=== PATIENT | female | born 1935 | race American Indian/Alaskan Native ===

== ENCOUNTER 2018-03-29 19:55 | Inpatient (IN) | payer MEDICARE, BC ==
[~2018-03-29] VITALS: Ht 152.4 cm; Wt 59.0 kg
[2018-03-29 21:00] VITALS: BP 148/93
[2018-03-29] MEDS ORDERED: HYDRALAZINE HCL 25MG TABLET PO PRN (21:00)
[2018-03-29] MEDS ORDERED: DOCUSATE SODIUM 100MG CAPSULE PO PRN (21:00)
[2018-03-29] MEDS ORDERED: METHOCARBAMOL 750MG TABLET PO PRN (21:00)
[2018-03-29] MEDS ORDERED: MAGNESIUM HYDROXIDE 400MG/5ML 30ML UDC PO PRN (21:00)
[2018-03-29] MEDS ORDERED: NON FORMULARY PATIENT HOME MED EA XX SCH ×5 (21:00→22:00)
[2018-03-29] MEDS ORDERED: DEXTROSE 50% WATER 50ML SYRINGE IV PRN (21:15)
[2018-03-29] MEDS ORDERED: HYDROCODONE/ACETAMINOPHEN 5/325MG TABLET PO PRN (21:27)
[2018-03-29] MEDS ORDERED: TRAMADOL 50MG TABLET PO PRN (21:30)
[2018-03-29 22:00] VITALS: BP 148/93
[2018-03-29] MEDS: BLOOD SUGAR DIAGNOSTIC STRIP TEST SCH (22:00)
[2018-03-29] MEDS ORDERED: KDUR10 PO ×2 (22:19)
[2018-03-29] MEDS ORDERED: ASPI-1079 PO (22:19)
[2018-03-29] MEDS ORDERED: GLIP10TA10 PO (22:19)
[2018-03-29] MEDS ORDERED: LOSA50TA20 PO (22:19)
[2018-03-29] MEDS ORDERED: MULT1TAB67 PO (22:19)
[2018-03-29] MEDS ORDERED: PRAV40TA58 PO (22:19)
[2018-03-29] MEDS ORDERED: FISH PO (22:19)
[2018-03-29] MEDS ORDERED: OMEP20CA10 PO (22:19)
[2018-03-29] MEDS ORDERED: RANI300T4 PO (22:19)
[2018-03-29] MEDS ORDERED: METF500T6 PO (22:19)
[2018-03-29] MEDS ORDERED: DOCU-138 PO (22:19)
[2018-03-29] MEDS ORDERED: CHOL200074 PO (22:19)
[2018-03-29] MEDS ORDERED: DYZ GT (22:19)
[2018-03-29] MEDS ORDERED: FERR325T6 PO (22:19)
[2018-03-29] MEDS ORDERED: TRAZ-212 PO (22:19)
[2018-03-29] MEDS ORDERED: ASCO-339 PO (22:19)
[2018-03-29] MEDS ORDERED: XALAO EACHEYE (22:19)
[2018-03-29] MEDS: SENNOSIDES 8.6MG TABLET PO SCH (22:51)
[2018-03-29] MEDS: LATANOPROST 0.005% OPHTH DROPS 2.5ML BOTHEYE SCH (22:51)
[2018-03-29] MEDS: CEFTRIAXONE 2 G in DEXTROSE 5% WATER 50 ML IV SCH (22:52)
[2018-03-29] MEDS: INSULIN GLARGINE UD 100 UNITS/ML SYR SUBCUT SCH (23:28)
[2018-03-29] MEDS: INSULIN LISPRO 100 UNITS/ML SUBCUT SCH (23:28)
[2018-03-29] MEDS ORDERED: THROAT LOZENGES-BENZOCAINE/MENTH/CETYLPYRD CL LOZENGES MM PRN (23:30)
[2018-03-30] MEDS ORDERED: XALAO EACHEYE (02:44)
[2018-03-30] MEDS ORDERED: FISH PO (02:44)
[2018-03-30] MEDS: BLOOD SUGAR DIAGNOSTIC STRIP TEST SCH ×4 (06:12→20:48)
[2018-03-30] MEDS: PANTOPRAZOLE 40MG DR TABLET PO SCH (06:12)
[2018-03-30 06:55] LABS: CHLORIDE 94 mEq/L (98-107)
[2018-03-30] MEDS: INSULIN LISPRO 100 UNITS/ML SUBCUT SCH ×4 (06:56→21:40)
[2018-03-30 07:01] VITALS: BP 141/66
[2018-03-30 07:41] LABS: HEMATOCRIT. 30.9 % (36.0-48.0); MEAN CORPUSCULAR HEMOGLOBIN 31.9 pg (28.0-32.0); MEAN CORPUSCULAR VOLUME 89.8 fL (81.0-99.0); MEAN PLATELET VOLUME 6.1 fl (7.4-10.4); PLATELET 352 x1000/uL (130-400); RED BLOOD CELL COUNT 3.44 mill/uL (4.2-5.4); RED CELL DISTRIBUTION WIDTH 12.2 % (11.6-14.6)
[2018-03-30] MEDS: POLYETHYLENE GLYCOL 3350 (17GM) 1 DOSE PACK PO SCH (08:59)
[2018-03-30] MEDS: ASCORBIC ACID 500 MG TABLET PO SCH (08:59)
[2018-03-30] MEDS: MULTIVITAMINS,THER W-MINERALS TABLET PO SCH (08:59)
[2018-03-30] MEDS: LOSARTAN POTASSIUM 50 MG TABLET PO SCH (09:00)
[2018-03-30] MEDS: FISH OIL/OMEGA-3 FATTY ACIDS 1000MG CAPSULE PO SCH ×2 (09:00→16:48)
[2018-03-30] MEDS ORDERED: FERROUS SULFATE 325MG TABLET PO SCH (09:00)
[2018-03-30] MEDS: SENNOSIDES 8.6MG TABLET PO SCH ×2 (09:00→20:49)
[2018-03-30] MEDS: TRIAMTERENE/HYDROCHLOROTHIAZIDE 37.5/25MG CAPSULE PO SCH (09:00)
[2018-03-30] MEDS: DOCUSATE SODIUM 100MG CAPSULE PO SCH ×2 (09:00→16:48)
[2018-03-30] MEDS: FAMOTIDINE 20MG TABLET PO SCH (09:00)
[2018-03-30] MEDS: CEFTRIAXONE 2 G in DEXTROSE 5% WATER 50 ML IV SCH ×2 (10:26→20:48)
[2018-03-30] MEDS: LINAGLIPTIN 5MG TABLET PO SCH (12:27)
[2018-03-30] MEDS: METFORMIN HCL 500MG TABLET PO SCH (16:48)
[2018-03-30 20:00] VITALS: BP 119/60
[2018-03-30] MEDS: LATANOPROST 0.005% OPHTH DROPS 2.5ML BOTHEYE SCH (20:47)
[2018-03-30] MEDS: TRAZODONE HCL 50MG TABLET PO SCH (20:48)
[2018-03-30] MEDS: ATORVASTATIN CALCIUM 10MG TABLET PO SCH (20:48)
[2018-03-30] MEDS: INSULIN GLARGINE UD 100 UNITS/ML SYR SUBCUT SCH (21:40)
[2018-03-30 22:47] LABS: PLATELET ESTIMATE NORMAL
[2018-03-31] MEDS: PANTOPRAZOLE 40MG DR TABLET PO SCH (06:13)
[2018-03-31] MEDS: BLOOD SUGAR DIAGNOSTIC STRIP TEST SCH ×4 (06:13→21:30)
[2018-03-31] MEDS: INSULIN LISPRO 100 UNITS/ML SUBCUT SCH ×4 (06:32→21:50)
[2018-03-31 07:48] LABS: CHLORIDE 94 mEq/L (98-107)
[2018-03-31 08:00] VITALS: BP 137/61
[2018-03-31 08:26] LABS: HEMATOCRIT. 32.6 % (36.0-48.0); HEMOGLOBIN. 11.5 g/dL (12.0-16.0); MEAN CORPUSCULAR HEMOGLOBIN 32.1 pg (28.0-32.0); MEAN CORPUSCULAR VOLUME 90.8 fL (81.0-99.0); MEAN PLATELET VOLUME 6.1 fl (7.4-10.4); PLATELET 358 x1000/uL (130-400); RED BLOOD CELL COUNT 3.59 mill/uL (4.2-5.4); RED CELL DISTRIBUTION WIDTH 12.5 % (11.6-14.6)
[2018-03-31] MEDS: MULTIVITAMINS,THER W-MINERALS TABLET PO SCH (08:31)
[2018-03-31] MEDS: FISH OIL/OMEGA-3 FATTY ACIDS 1000MG CAPSULE PO SCH ×2 (08:31→17:42)
[2018-03-31] MEDS: LOSARTAN POTASSIUM 50 MG TABLET PO SCH (08:31)
[2018-03-31] MEDS: LINAGLIPTIN 5MG TABLET PO SCH (08:31)
[2018-03-31] MEDS: POLYETHYLENE GLYCOL 3350 (17GM) 1 DOSE PACK PO SCH (08:31)
[2018-03-31] MEDS: CEFTRIAXONE 2 G in DEXTROSE 5% WATER 50 ML IV SCH ×2 (08:31→20:48)
[2018-03-31] MEDS: METFORMIN HCL 500MG TABLET PO SCH ×2 (08:32→17:42)
[2018-03-31] MEDS: TRIAMTERENE/HYDROCHLOROTHIAZIDE 37.5/25MG CAPSULE PO SCH (08:32)
[2018-03-31] MEDS: ACETAMINOPHEN 325MG TABLET PO PRN (08:32)
[2018-03-31] MEDS: DOCUSATE SODIUM 100MG CAPSULE PO SCH ×2 (08:32→17:42)
[2018-03-31] MEDS: LACTOBACILLUS GG CAPSULE PO SCH (08:32)
[2018-03-31] MEDS: FAMOTIDINE 20MG TABLET PO SCH (08:32)
[2018-03-31] MEDS: ASCORBIC ACID 500 MG TABLET PO SCH (08:33)
[2018-03-31] MEDS: SENNOSIDES 8.6MG TABLET PO SCH ×2 (09:20→21:50)
[2018-03-31 10:37] LABS: CLARITY URINE CLEAR (CLEAR); COLOR URINE YELLOW (YELLOW); KETONES URINE NEGATIVE (NEGATIVE); LEUKOCYTE ESTERASE URINE NEGATIVE (NEGATIVE); NITRITE URINE NEGATIVE (NEGATIVE); OCCULT BLOOD URINE NEGATIVE (NEGATIVE); PH URINE 6.5 (4.5-8.0); PROTEIN URINE NEGATIVE (NEGATIVE); SPECIFIC GRAVITY URINE 1.015 (1.005-1.030); UROBILINOGEN URINE 0.2 E.U./dL (0.2-1.0)
[2018-03-31 13:04] LABS: PLATELET ESTIMATE NORMAL
[2018-03-31 20:00] VITALS: BP 132/72
[2018-03-31] MEDS: LATANOPROST 0.005% OPHTH DROPS 2.5ML BOTHEYE SCH (20:47)
[2018-03-31] MEDS: ATORVASTATIN CALCIUM 10MG TABLET PO SCH (20:47)
[2018-03-31] MEDS: TRAZODONE HCL 50MG TABLET PO SCH (20:48)
[2018-03-31] MEDS: INSULIN GLARGINE UD 100 UNITS/ML SYR SUBCUT SCH (22:19)
[2018-04-01] MEDS: BLOOD SUGAR DIAGNOSTIC STRIP TEST SCH ×4 (06:16→21:32)
[2018-04-01] MEDS: INSULIN LISPRO 100 UNITS/ML SUBCUT SCH ×4 (06:49→22:29)
[2018-04-01 07:26] LABS: CHLORIDE 95 mEq/L (98-107)
[2018-04-01 07:45] LABS: PHOSPHORUS 3.2 mg/dL (2.5-4.9); TOTAL IRON BINDING CAPACITY 270 ug/dL (250-450)
[2018-04-01 08:00] VITALS: BP 136/58
[2018-04-01 08:13] LABS: HEMATOCRIT. 31.8 % (36.0-48.0); HEMOGLOBIN. 11.3 g/dL (12.0-16.0); MEAN CORPUSCULAR HEMOGLOBIN 31.9 pg (28.0-32.0); MEAN CORPUSCULAR VOLUME 89.6 fL (81.0-99.0); MEAN PLATELET VOLUME 6.1 fl (7.4-10.4); PLATELET 389 x1000/uL (130-400); RED BLOOD CELL COUNT 3.55 mill/uL (4.2-5.4); RED CELL DISTRIBUTION WIDTH 12.3 % (11.6-14.6)
[2018-04-01] MEDS ORDERED: FAMOTIDINE 20MG TABLET PO SCH (09:00)
[2018-04-01] MEDS: CEFTRIAXONE 2 G in DEXTROSE 5% WATER 50 ML IV SCH ×2 (09:26→22:22)
[2018-04-01] MEDS: MULTIVITAMINS,THER W-MINERALS TABLET PO SCH (09:27)
[2018-04-01] MEDS: METFORMIN HCL 500MG TABLET PO SCH ×2 (09:27→17:46)
[2018-04-01] MEDS: FISH OIL/OMEGA-3 FATTY ACIDS 1000MG CAPSULE PO SCH ×2 (09:27→17:46)
[2018-04-01] MEDS: TRIAMTERENE/HYDROCHLOROTHIAZIDE 37.5/25MG CAPSULE PO SCH (09:27)
[2018-04-01] MEDS: LINAGLIPTIN 5MG TABLET PO SCH (09:27)
[2018-04-01] MEDS: LOSARTAN POTASSIUM 50 MG TABLET PO SCH (09:27)
[2018-04-01] MEDS: LACTOBACILLUS GG CAPSULE PO SCH (09:28)
[2018-04-01] MEDS: DOCUSATE SODIUM 100MG CAPSULE PO SCH ×2 (09:28→17:46)
[2018-04-01] MEDS: ASCORBIC ACID 500 MG TABLET PO SCH (09:28)
[2018-04-01] MEDS: POLYETHYLENE GLYCOL 3350 (17GM) 1 DOSE PACK PO SCH (09:28)
[2018-04-01] MEDS: FAMOTIDINE 20MG TABLET PO SCH (09:28)
[2018-04-01] MEDS: SENNOSIDES 8.6MG TABLET PO SCH ×2 (09:31→22:23)
[2018-04-01] MEDS ORDERED: ASCORBIC ACID 500 MG TABLET PO SCH (10:00)
[2018-04-01 10:49] LABS: FERRITIN 200 ng/mL (10-291)
[2018-04-01] MEDS: OXYBUTYNIN CHLORIDE 5MG TABLET PO SCH ×2 (11:07→22:23)
[2018-04-01] MEDS: ZINC SULFATE 220 MG ( 50 ) CAPSULE PO SCH (11:07)
[2018-04-01] MEDS: FERROUS SULFATE 325MG TABLET PO SCH ×2 (12:35→17:46)
[2018-04-01 13:06] LABS: PLATELET ESTIMATE NORMAL
[2018-04-01 14:24] LABS: VITAMIN B12 SERUM 884 pg/mL (211-911)
[2018-04-01 14:30] LABS: FOLIC ACID (FOLATE) SERUM >20 ng/mL ng/mL (>5.38)
[2018-04-01 20:00] VITALS: BP 140/64
[2018-04-01] MEDS: LATANOPROST 0.005% OPHTH DROPS 2.5ML BOTHEYE SCH (22:23)
[2018-04-01] MEDS: ATORVASTATIN CALCIUM 10MG TABLET PO SCH (22:23)
[2018-04-01] MEDS: TRAZODONE HCL 50MG TABLET PO SCH (22:23)
[2018-04-01] MEDS: INSULIN GLARGINE UD 100 UNITS/ML SYR SUBCUT SCH (22:30)
[2018-04-02] MEDS: INSULIN LISPRO 100 UNITS/ML SUBCUT SCH ×4 (06:27→21:30)
[2018-04-02] MEDS: BLOOD SUGAR DIAGNOSTIC STRIP TEST SCH ×4 (06:27→21:17)
[2018-04-02 07:09] LABS: CHLORIDE 96 mEq/L (98-107)
[2018-04-02 07:44] LABS: HEMATOCRIT. 33.5 % (36.0-48.0); HEMOGLOBIN. 11.9 g/dL (12.0-16.0); MEAN PLATELET VOLUME 5.9 fl (7.4-10.4); PLATELET 402 x1000/uL (130-400); RED BLOOD CELL COUNT 3.72 mill/uL (4.2-5.4); RED CELL DISTRIBUTION WIDTH 12.6 % (11.6-14.6)
[2018-04-02 08:00] VITALS: BP 129/67
[2018-04-02] MEDS: CEFTRIAXONE 2 G in DEXTROSE 5% WATER 50 ML IV SCH ×2 (08:58→21:05)
[2018-04-02 08:59] LABS: PLATELET ESTIMATE SLIGHTLY INCREASED
[2018-04-02] MEDS: OXYBUTYNIN CHLORIDE 5MG TABLET PO SCH ×2 (08:59→21:05)
[2018-04-02] MEDS: LACTOBACILLUS GG CAPSULE PO SCH (08:59)
[2018-04-02] MEDS: DOCUSATE SODIUM 100MG CAPSULE PO SCH ×2 (08:59→19:00)
[2018-04-02] MEDS: POLYETHYLENE GLYCOL 3350 (17GM) 1 DOSE PACK PO SCH (08:59)
[2018-04-02] MEDS: LINAGLIPTIN 5MG TABLET PO SCH (09:00)
[2018-04-02] MEDS: TRIAMTERENE/HYDROCHLOROTHIAZIDE 37.5/25MG CAPSULE PO SCH (09:00)
[2018-04-02] MEDS: LOSARTAN POTASSIUM 50 MG TABLET PO SCH (09:00)
[2018-04-02] MEDS: FERROUS SULFATE 325MG TABLET PO SCH ×3 (09:00→19:01)
[2018-04-02] MEDS: SENNOSIDES 8.6MG TABLET PO SCH ×2 (09:00→21:05)
[2018-04-02] MEDS: FAMOTIDINE 20MG TABLET PO SCH (09:00)
[2018-04-02] MEDS: ZINC SULFATE 220 MG ( 50 ) CAPSULE PO SCH (09:00)
[2018-04-02] MEDS: MULTIVITAMINS,THER W-MINERALS TABLET PO SCH (09:00)
[2018-04-02] MEDS: METFORMIN HCL 500MG TABLET PO SCH ×2 (09:01→19:01)
[2018-04-02] MEDS: ACETAMINOPHEN 325MG TABLET PO PRN (09:46)
[2018-04-02] MEDS: ASCORBIC ACID 500 MG TABLET PO SCH (10:35)
[2018-04-02] MEDS: FISH OIL/OMEGA-3 FATTY ACIDS 1000MG CAPSULE PO SCH ×2 (10:55→19:01)
[2018-04-02 20:00] VITALS: BP 133/59
[2018-04-02] MEDS: ATORVASTATIN CALCIUM 10MG TABLET PO SCH (21:05)
[2018-04-02] MEDS: LATANOPROST 0.005% OPHTH DROPS 2.5ML BOTHEYE SCH (21:05)
[2018-04-02] MEDS: TRAZODONE HCL 50MG TABLET PO SCH (21:31)
[2018-04-02] MEDS: INSULIN GLARGINE UD 100 UNITS/ML SYR SUBCUT SCH (21:31)
[2018-04-03] MEDS: BLOOD SUGAR DIAGNOSTIC STRIP TEST SCH ×4 (06:26→21:42)
[2018-04-03] MEDS: INSULIN LISPRO 100 UNITS/ML SUBCUT SCH ×4 (06:48→21:42)
[2018-04-03 07:55] VITALS: BP 127/55
[2018-04-03 08:00] VITALS: BP 127/55
[2018-04-03] MEDS: POLYETHYLENE GLYCOL 3350 (17GM) 1 DOSE PACK PO SCH (09:08)
[2018-04-03] MEDS: ZINC SULFATE 220 MG ( 50 ) CAPSULE PO SCH (09:09)
[2018-04-03] MEDS: FISH OIL/OMEGA-3 FATTY ACIDS 1000MG CAPSULE PO SCH ×2 (09:09→18:00)
[2018-04-03] MEDS: TRIAMTERENE/HYDROCHLOROTHIAZIDE 37.5/25MG CAPSULE PO SCH (09:09)
[2018-04-03] MEDS: ASCORBIC ACID 500 MG TABLET PO SCH (09:10)
[2018-04-03] MEDS: DOCUSATE SODIUM 100MG CAPSULE PO SCH ×2 (09:10→18:00)
[2018-04-03] MEDS: METFORMIN HCL 500MG TABLET PO SCH ×2 (09:10→18:01)
[2018-04-03] MEDS: LACTOBACILLUS GG CAPSULE PO SCH (09:10)
[2018-04-03] MEDS: ACETAMINOPHEN 325MG TABLET PO PRN (09:10)
[2018-04-03] MEDS: FERROUS SULFATE 325MG TABLET PO SCH ×3 (09:11→18:01)
[2018-04-03] MEDS: FAMOTIDINE 20MG TABLET PO SCH (09:11)
[2018-04-03] MEDS: SENNOSIDES 8.6MG TABLET PO SCH ×2 (09:11→21:27)
[2018-04-03] MEDS: OXYBUTYNIN CHLORIDE 5MG TABLET PO SCH ×2 (09:11→21:26)
[2018-04-03] MEDS: LOSARTAN POTASSIUM 50 MG TABLET PO SCH (09:11)
[2018-04-03] MEDS: MULTIVITAMINS,THER W-MINERALS TABLET PO SCH (09:11)
[2018-04-03] MEDS: LINAGLIPTIN 5MG TABLET PO SCH (09:20)
[2018-04-03] MEDS: CEFTRIAXONE 2 G in DEXTROSE 5% WATER 50 ML IV SCH ×2 (09:24→21:29)
[2018-04-03 20:00] VITALS: BP 119/57
[2018-04-03] MEDS: ATORVASTATIN CALCIUM 10MG TABLET PO SCH (21:26)
[2018-04-03] MEDS: TRAZODONE HCL 50MG TABLET PO SCH (21:27)
[2018-04-03] MEDS ORDERED: HYDROCODONE/ACETAMINOPHEN 5/325MG TABLET PO PRN (21:27)
[2018-04-03] MEDS: LATANOPROST 0.005% OPHTH DROPS 2.5ML BOTHEYE SCH (21:28)
[2018-04-03] MEDS ORDERED: TRAMADOL 50MG TABLET PO PRN (21:30)
[2018-04-03] MEDS: INSULIN GLARGINE UD 100 UNITS/ML SYR SUBCUT SCH (21:42)
[2018-04-04] MEDS: BLOOD SUGAR DIAGNOSTIC STRIP TEST SCH ×4 (06:20→21:20)
[2018-04-04] MEDS: INSULIN LISPRO 100 UNITS/ML SUBCUT SCH ×4 (06:27→21:20)
[2018-04-04 07:26] LABS: HEMATOCRIT. 32.1 % (36.0-48.0); HEMOGLOBIN. 11.4 g/dL (12.0-16.0); MEAN CORPUSCULAR HEMOGLOBIN 32.2 pg (28.0-32.0); MEAN CORPUSCULAR VOLUME 90.7 fL (81.0-99.0); PLATELET 381 x1000/uL (130-400); RED BLOOD CELL COUNT 3.54 mill/uL (4.2-5.4); RED CELL DISTRIBUTION WIDTH 12.1 % (11.6-14.6)
[2018-04-04 07:48] LABS: CHLORIDE 98 mEq/L (98-107)
[2018-04-04 08:00] VITALS: BP 124/62
[2018-04-04] MEDS: ASCORBIC ACID 500 MG TABLET PO SCH (09:11)
[2018-04-04] MEDS: METFORMIN HCL 500MG TABLET PO SCH ×2 (09:11→16:45)
[2018-04-04] MEDS: FAMOTIDINE 20MG TABLET PO SCH (09:11)
[2018-04-04] MEDS: MULTIVITAMINS,THER W-MINERALS TABLET PO SCH (09:11)
[2018-04-04] MEDS: FISH OIL/OMEGA-3 FATTY ACIDS 1000MG CAPSULE PO SCH ×2 (09:11→16:45)
[2018-04-04] MEDS: TRIAMTERENE/HYDROCHLOROTHIAZIDE 37.5/25MG CAPSULE PO SCH (09:11)
[2018-04-04] MEDS: DOCUSATE SODIUM 100MG CAPSULE PO SCH ×2 (09:11→16:45)
[2018-04-04] MEDS: LOSARTAN POTASSIUM 50 MG TABLET PO SCH (09:11)
[2018-04-04] MEDS: FERROUS SULFATE 325MG TABLET PO SCH ×3 (09:11→16:45)
[2018-04-04] MEDS: LACTOBACILLUS GG CAPSULE PO SCH (09:11)
[2018-04-04] MEDS: ZINC SULFATE 220 MG ( 50 ) CAPSULE PO SCH (09:11)
[2018-04-04] MEDS: LINAGLIPTIN 5MG TABLET PO SCH (09:11)
[2018-04-04] MEDS: POLYETHYLENE GLYCOL 3350 (17GM) 1 DOSE PACK PO SCH (09:12)
[2018-04-04] MEDS: OXYBUTYNIN CHLORIDE 5MG TABLET PO SCH ×2 (09:12→21:19)
[2018-04-04] MEDS: ACETAMINOPHEN 325MG TABLET PO PRN (09:12)
[2018-04-04] MEDS: CEFTRIAXONE 2 G in DEXTROSE 5% WATER 50 ML IV SCH ×2 (09:28→21:19)
[2018-04-04] MEDS: SENNOSIDES 8.6MG TABLET PO SCH ×2 (11:34→21:19)
[2018-04-04 12:00] VITALS: BP 124/62
[2018-04-04] MEDS ORDERED: LACTULOSE 20G/30ML UDC PO NR (15:00)
[2018-04-04 16:53] LABS: PLATELET ESTIMATE NORMAL
[2018-04-04 20:00] VITALS: BP 128/58
[2018-04-04] MEDS: LATANOPROST 0.005% OPHTH DROPS 2.5ML BOTHEYE SCH (21:19)
[2018-04-04] MEDS: ATORVASTATIN CALCIUM 10MG TABLET PO SCH (21:19)
[2018-04-04] MEDS: TRAZODONE HCL 50MG TABLET PO SCH (21:20)
[2018-04-04] MEDS: INSULIN GLARGINE UD 100 UNITS/ML SYR SUBCUT SCH (21:21)
[2018-04-05] MEDS: BLOOD SUGAR DIAGNOSTIC STRIP TEST SCH ×4 (06:30→21:11)
[2018-04-05] MEDS: INSULIN LISPRO 100 UNITS/ML SUBCUT SCH ×4 (07:41→21:00)
[2018-04-05 08:00] VITALS: BP 148/67
[2018-04-05] MEDS: CEFTRIAXONE 2 G in DEXTROSE 5% WATER 50 ML IV SCH ×2 (08:47→20:41)
[2018-04-05] MEDS: POLYETHYLENE GLYCOL 3350 (17GM) 1 DOSE PACK PO SCH (08:48)
[2018-04-05] MEDS: OXYBUTYNIN CHLORIDE 5MG TABLET PO SCH ×2 (08:48→20:41)
[2018-04-05] MEDS: MULTIVITAMINS,THER W-MINERALS TABLET PO SCH (08:48)
[2018-04-05] MEDS: METFORMIN HCL 500MG TABLET PO SCH ×2 (08:48→16:39)
[2018-04-05] MEDS: TRIAMTERENE/HYDROCHLOROTHIAZIDE 37.5/25MG CAPSULE PO SCH (08:48)
[2018-04-05] MEDS: LOSARTAN POTASSIUM 50 MG TABLET PO SCH (08:49)
[2018-04-05] MEDS: LINAGLIPTIN 5MG TABLET PO SCH (08:49)
[2018-04-05] MEDS: DOCUSATE SODIUM 100MG CAPSULE PO SCH ×2 (08:49→16:39)
[2018-04-05] MEDS: LACTOBACILLUS GG CAPSULE PO SCH (08:49)
[2018-04-05] MEDS: ASCORBIC ACID 500 MG TABLET PO SCH (08:49)
[2018-04-05] MEDS: FERROUS SULFATE 325MG TABLET PO SCH ×3 (08:49→16:39)
[2018-04-05] MEDS: FAMOTIDINE 20MG TABLET PO SCH (08:49)
[2018-04-05] MEDS: ZINC SULFATE 220 MG ( 50 ) CAPSULE PO SCH (08:50)
[2018-04-05] MEDS: FISH OIL/OMEGA-3 FATTY ACIDS 1000MG CAPSULE PO SCH ×2 (09:02→16:39)
[2018-04-05] MEDS: SENNOSIDES 8.6MG TABLET PO SCH ×2 (09:04→21:11)
[2018-04-05 20:00] VITALS: BP 125/70
[2018-04-05] MEDS: LATANOPROST 0.005% OPHTH DROPS 2.5ML BOTHEYE SCH (20:41)
[2018-04-05] MEDS: ATORVASTATIN CALCIUM 10MG TABLET PO SCH (20:41)
[2018-04-05] MEDS: TRAZODONE HCL 50MG TABLET PO SCH (21:11)
[2018-04-05] MEDS: INSULIN GLARGINE UD 100 UNITS/ML SYR SUBCUT SCH (21:26)
[2018-04-06] MEDS: BLOOD SUGAR DIAGNOSTIC STRIP TEST SCH ×4 (06:10→21:05)
[2018-04-06] MEDS: INSULIN LISPRO 100 UNITS/ML SUBCUT SCH ×4 (06:48→21:12)
[2018-04-06 07:50] VITALS: BP 142/68
[2018-04-06] MEDS: ACETAMINOPHEN 325MG TABLET PO PRN (07:56)
[2018-04-06] MEDS: FERROUS SULFATE 325MG TABLET PO SCH ×3 (08:34→17:22)
[2018-04-06] MEDS: ZINC SULFATE 220 MG ( 50 ) CAPSULE PO SCH (08:34)
[2018-04-06] MEDS: LOSARTAN POTASSIUM 50 MG TABLET PO SCH (08:34)
[2018-04-06] MEDS: ASCORBIC ACID 500 MG TABLET PO SCH (08:34)
[2018-04-06] MEDS: MULTIVITAMINS,THER W-MINERALS TABLET PO SCH (08:34)
[2018-04-06] MEDS: TRIAMTERENE/HYDROCHLOROTHIAZIDE 37.5/25MG CAPSULE PO SCH (08:34)
[2018-04-06] MEDS: FAMOTIDINE 20MG TABLET PO SCH (08:34)
[2018-04-06] MEDS: LINAGLIPTIN 5MG TABLET PO SCH (08:34)
[2018-04-06] MEDS: METFORMIN HCL 500MG TABLET PO SCH ×2 (08:34→17:22)
[2018-04-06] MEDS: FISH OIL/OMEGA-3 FATTY ACIDS 1000MG CAPSULE PO SCH ×2 (08:35→17:22)
[2018-04-06] MEDS: OXYBUTYNIN CHLORIDE 5MG TABLET PO SCH ×2 (08:35→21:04)
[2018-04-06] MEDS: POLYETHYLENE GLYCOL 3350 (17GM) 1 DOSE PACK PO SCH (08:35)
[2018-04-06] MEDS: LACTOBACILLUS GG CAPSULE PO SCH (08:35)
[2018-04-06] MEDS: DOCUSATE SODIUM 100MG CAPSULE PO SCH ×2 (08:35→17:22)
[2018-04-06] MEDS: SENNOSIDES 8.6MG TABLET PO SCH ×2 (11:27→21:05)
[2018-04-06 15:06] LABS: 25-HYDROXY VITAMIN D3 58 ng/mL (.)
[2018-04-06 20:00] VITALS: BP 117/56
[2018-04-06] MEDS: TRAZODONE HCL 50MG TABLET PO SCH (21:04)
[2018-04-06] MEDS: LATANOPROST 0.005% OPHTH DROPS 2.5ML BOTHEYE SCH (21:04)
[2018-04-06] MEDS: ATORVASTATIN CALCIUM 10MG TABLET PO SCH (21:04)
[2018-04-06] MEDS: INSULIN GLARGINE UD 100 UNITS/ML SYR SUBCUT SCH (21:12)
[2018-04-07] MEDS: INSULIN LISPRO 100 UNITS/ML SUBCUT SCH (05:59)
[2018-04-07] MEDS: BLOOD SUGAR DIAGNOSTIC STRIP TEST SCH ×2 (05:59→11:15)
[2018-04-07 08:00] VITALS: BP 154/71
[2018-04-07] MEDS: FISH OIL/OMEGA-3 FATTY ACIDS 1000MG CAPSULE PO SCH (09:30)
[2018-04-07] MEDS: ZINC SULFATE 220 MG ( 50 ) CAPSULE PO SCH (09:30)
[2018-04-07] MEDS: OXYBUTYNIN CHLORIDE 5MG TABLET PO SCH (09:31)
[2018-04-07] MEDS: LOSARTAN POTASSIUM 50 MG TABLET PO SCH (09:31)
[2018-04-07] MEDS: POLYETHYLENE GLYCOL 3350 (17GM) 1 DOSE PACK PO SCH (09:31)
[2018-04-07] MEDS: TRIAMTERENE/HYDROCHLOROTHIAZIDE 37.5/25MG CAPSULE PO SCH (09:31)
[2018-04-07] MEDS: METFORMIN HCL 500MG TABLET PO SCH (09:31)
[2018-04-07] MEDS: LACTOBACILLUS GG CAPSULE PO SCH (09:31)
[2018-04-07] MEDS: DOCUSATE SODIUM 100MG CAPSULE PO SCH (09:31)
[2018-04-07] MEDS: FAMOTIDINE 20MG TABLET PO SCH (09:31)
[2018-04-07] MEDS: MULTIVITAMINS,THER W-MINERALS TABLET PO SCH (09:31)
[2018-04-07] MEDS: FERROUS SULFATE 325MG TABLET PO SCH ×2 (09:31→13:17)
[2018-04-07] MEDS: LINAGLIPTIN 5MG TABLET PO SCH (09:31)
[2018-04-07] MEDS: SENNOSIDES 8.6MG TABLET PO SCH (09:34)
[2018-04-07] MEDS: ASCORBIC ACID 500 MG TABLET PO SCH (11:45)
[2018-04-07 12:34] VITALS: BP 154/71
== END 2018-04-07 14:35 | disposition home health service (06) | DRG 564 ==
PROVIDERS: ADMIT Physical Medicine & Rehabilitation Spinal Cord Injury Medicine; ATTEND Family Medicine Adult Medicine
DX: D49.2 Neoplasm of unspecified behavior of bone, soft tissue, and skin (principal); G93.40 Encephalopathy, unspecified; A41.59 Other Gram-negative sepsis; G82.20 Paraplegia, unspecified; F05 Delirium due to known physiological condition; R53.81 Other malaise; R26.9 Unspecified abnormalities of gait and mobility; R32 Unspecified urinary incontinence; R35.0 Frequency of micturition; L89.90 Pressure ulcer of unspecified site, unspecified stage; H40.9 Unspecified glaucoma; E78.5 Hyperlipidemia, unspecified; D50.9 Iron deficiency anemia, unspecified; E11.65 Type 2 diabetes mellitus with hyperglycemia; I10 Essential (primary) hypertension; N31.9 Neuromuscular dysfunction of bladder, unspecified; M54.5 Low back pain; M79.609 Pain in unspecified limb; K22.70 Barrett's esophagus without dysplasia; D36.10 Benign neoplasm of peripheral nerves and autonomic nervous system, unspecified; R50.82 Postprocedural fever; K21.9 Gastro-esophageal reflux disease without esophagitis; Z85.3 Personal history of malignant neoplasm of breast; Z92.21 Personal history of antineoplastic chemotherapy; Z90.10 Acquired absence of unspecified breast and nipple; Z85.038 Personal history of other malignant neoplasm of large intestine; Z98.1 Arthrodesis status; Z90.49 Acquired absence of other specified parts of digestive tract
CPT/HCPCS: 36415; 80048; 80053; 81003; 82306; 82607; 82728; 82746; 82962; 83036; 83540; 83550; 83735; 84100; 84134; 84443; 84630; 85025; 87086; 92523; 93970; 97110; 97112; 97116; 97162; 97166; 97530; 97535; G0515; J0696; J1815; J7040; J7050; J7060

== ENCOUNTER 2019-02-16 15:20 | Inpatient (IN) | payer MEDICARE, BC ==
[~2019-02-16] VITALS: Ht 152.4 cm; Wt 49.9 kg
[2019-02-16] MEDS ORDERED: MAGNESIUM HYDROXIDE 400MG/5ML 30ML UDC PO PRN (17:30)
[2019-02-16] MEDS ORDERED: LACTULOSE 20G/30ML UDC PO PRN (17:30)
[2019-02-16] MEDS ORDERED: DEXTROSE 50% WATER 50ML SYRINGE IV PRN (17:30)
[2019-02-16] MEDS ORDERED: ALBUTEROL (0.083%) 2.5MG/3ML NEB HHN PRN (17:30)
[2019-02-16] MEDS ORDERED: ACETAMINOPHEN 325MG TABLET PO PRN (17:30)
[2019-02-16] MEDS ORDERED: BISACODYL 10MG SUPP PR PRN (17:30)
[2019-02-16] MEDS ORDERED: MINERAL OIL ENEMA 133ML PR PRN (17:30)
[2019-02-16] MEDS ORDERED: MAGNESIUM/ALUMINUM HYDROXIDE/SIMETHICONE 30ML UDC PO PRN (17:30)
[2019-02-16] MEDS ORDERED: RANI300T4 PO (17:50)
[2019-02-16] MEDS ORDERED: SITA50TA3 PO (17:50)
[2019-02-16] MEDS ORDERED: MULT-1062 PO (17:50)
[2019-02-16] MEDS ORDERED: FISH GT (17:50)
[2019-02-16] MEDS ORDERED: CHOL200077 PO (17:50)
[2019-02-16] MEDS ORDERED: ASCO125T PO (17:50)
[2019-02-16] MEDS ORDERED: CALC-30 PO (17:50)
[2019-02-16] MEDS ORDERED: PRAV40TA58 PO (17:50)
[2019-02-16] MEDS ORDERED: LATA2.5D2 EACHEYE (17:50)
[2019-02-16] MEDS ORDERED: GLIP5TAB12 PO (17:50)
[2019-02-16] MEDS ORDERED: DOCU-138 PO (17:50)
[2019-02-16] MEDS ORDERED: LOSA50TA41 PO (17:50)
[2019-02-16] MEDS ORDERED: FERR220S12 PO (17:50)
[2019-02-16] MEDS ORDERED: OMEP20CA5 PO (17:50)
[2019-02-16] MEDS ORDERED: ASPI-864 PO (17:50)
[2019-02-16] MEDS ORDERED: METF-815 PO (17:50)
[2019-02-16 17:55] VITALS: BP 140/61
[2019-02-16 20:00] VITALS: BP 149/62
[2019-02-16] MEDS: BLOOD SUGAR DIAGNOSTIC STRIP TEST SCH (20:56)
[2019-02-16] MEDS: LATANOPROST 0.005% OPHTH DROPS 2.5ML BOTHEYE SCH (21:11)
[2019-02-16] MEDS: INSULIN LISPRO 100 UNITS/ML SUBCUT SCH (21:27)
[2019-02-16] MEDS ORDERED: IOHEXOL-300 100 ML BOTTLE ONE (21:47)
[2019-02-17 05:37] LABS: BASOPHILS % 0.7 % (0.0-2.0); EOSINOPHILS % 2.3 % (0.0-5.0); HEMATOCRIT. 30.7 % (36.0-48.0); HEMOGLOBIN. 10.8 g/dL (12.0-16.0); LYMPHOCYTES % 31.3 % (20.0-50.0); MEAN CORPUSCULAR HEMOGLOBIN 31.8 pg (28.0-32.0); MEAN CORPUSCULAR VOLUME 90.3 fL (81.0-99.0); MEAN PLATELET VOLUME 6.1 fl (7.4-10.4); MONOCYTES % 10.3 % (2.0-8.0); NEUTROPHILS % 55.4 % (40.0-76.0); PLATELET 330 x1000/uL (130-400); RED CELL DISTRIBUTION WIDTH 12.5 % (11.6-14.6)
[2019-02-17 05:43] LABS: CHLORIDE 107 mEq/L (98-107)
[2019-02-17] MEDS: BLOOD SUGAR DIAGNOSTIC STRIP TEST SCH ×4 (05:56→21:30)
[2019-02-17] MEDS: INSULIN LISPRO 100 UNITS/ML SUBCUT SCH ×4 (05:57→21:30)
[2019-02-17] MEDS: PANTOPRAZOLE 40MG DR TABLET PO SCH (06:00)
[2019-02-17 07:55] VITALS: BP 145/62
[2019-02-17] MEDS: FAMOTIDINE 20MG TABLET PO SCH (08:32)
[2019-02-17] MEDS: DOCUSATE SODIUM 100MG CAPSULE PO SCH ×2 (08:32→16:32)
[2019-02-17] MEDS: ENOXAPARIN 30MG/0.3ML SYR SUBCUT SCH (08:34)
[2019-02-17] MEDS: POLYETHYLENE GLYCOL 3350 (17GM) 1 DOSE PACK PO SCH (08:56)
[2019-02-17 20:00] VITALS: BP 138/60
[2019-02-17] MEDS: LATANOPROST 0.005% OPHTH DROPS 2.5ML BOTHEYE SCH (21:30)
[2019-02-18] MEDS: BLOOD SUGAR DIAGNOSTIC STRIP TEST SCH ×4 (06:10→21:18)
[2019-02-18] MEDS: PANTOPRAZOLE 40MG DR TABLET PO SCH (06:11)
[2019-02-18 07:18] LABS: BASOPHILS % 0.7 % (0.0-2.0); EOSINOPHILS % 1.9 % (0.0-5.0); HEMATOCRIT. 31.8 % (36.0-48.0); HEMOGLOBIN. 11.3 g/dL (12.0-16.0); LYMPHOCYTES % 30.5 % (20.0-50.0); MEAN CORPUSCULAR HEMOGLOBIN 32.1 pg (28.0-32.0); MEAN CORPUSCULAR VOLUME 90.3 fL (81.0-99.0); MEAN PLATELET VOLUME 6.1 fl (7.4-10.4); MONOCYTES % 9.4 % (2.0-8.0); NEUTROPHILS % 57.5 % (40.0-76.0); PLATELET 322 x1000/uL (130-400); RED BLOOD CELL COUNT 3.52 mill/uL (4.2-5.4); RED CELL DISTRIBUTION WIDTH 12.5 % (11.6-14.6)
[2019-02-18] MEDS: INSULIN LISPRO 100 UNITS/ML SUBCUT SCH ×4 (07:28→21:18)
[2019-02-18 07:38] LABS: CHLORIDE 107 mEq/L (98-107)
[2019-02-18 07:58] VITALS: BP 143/66
[2019-02-18] MEDS: FAMOTIDINE 20MG TABLET PO SCH (08:19)
[2019-02-18] MEDS: ENOXAPARIN 30MG/0.3ML SYR SUBCUT SCH (08:31)
[2019-02-18] MEDS: DOCUSATE SODIUM 100MG CAPSULE PO SCH ×2 (09:00→16:50)
[2019-02-18] MEDS: POLYETHYLENE GLYCOL 3350 (17GM) 1 DOSE PACK PO SCH (09:00)
[2019-02-18 17:19] LABS: AMYLASE 92 IU/L (25-115)
[2019-02-18 20:00] VITALS: BP 138/70
[2019-02-18 20:39] LABS: CLARITY URINE CLEAR (CLEAR); COLOR URINE YELLOW (YELLOW); KETONES URINE NEGATIVE (NEGATIVE); LEUKOCYTE ESTERASE URINE NEGATIVE (NEGATIVE); NITRITE URINE NEGATIVE (NEGATIVE); OCCULT BLOOD URINE NEGATIVE (NEGATIVE); PH URINE 5.5 (4.5-8.0); PROTEIN URINE NEGATIVE (NEGATIVE); SPECIFIC GRAVITY URINE 1.009 (1.005-1.030)
[2019-02-18] MEDS ORDERED: TRAZODONE HCL 50MG TABLET PO PRN (21:00)
[2019-02-18] MEDS: LATANOPROST 0.005% OPHTH DROPS 2.5ML BOTHEYE SCH (21:18)
[2019-02-19] MEDS: PANTOPRAZOLE 40MG DR TABLET PO SCH (05:56)
[2019-02-19] MEDS: INSULIN LISPRO 100 UNITS/ML SUBCUT SCH ×4 (06:15→22:21)
[2019-02-19] MEDS: BLOOD SUGAR DIAGNOSTIC STRIP TEST SCH ×4 (06:18→21:00)
[2019-02-19 06:55] LABS: CHLORIDE 109 mEq/L (98-107)
[2019-02-19 07:01] LABS: PHOSPHORUS 3.1 mg/dL (2.5-4.9)
[2019-02-19 07:02] LABS: LDL CHOLESTEROL 69 mg/dL (5-100)
[2019-02-19 07:03] LABS: HDL CHOLESTEROL 28 mg/dL (40-59); TOTAL IRON BINDING CAPACITY 225 ug/dL (250-450)
[2019-02-19 07:23] LABS: BASOPHILS % 0.7 % (0.0-2.0); EOSINOPHILS % 1.8 % (0.0-5.0); HEMATOCRIT. 30.1 % (36.0-48.0); HEMOGLOBIN. 10.8 g/dL (12.0-16.0); LYMPHOCYTES % 30.4 % (20.0-50.0); MEAN CORPUSCULAR HEMOGLOBIN 32.4 pg (28.0-32.0); MEAN CORPUSCULAR VOLUME 90.4 fL (81.0-99.0); MEAN PLATELET VOLUME 6.2 fl (7.4-10.4); MONOCYTES % 10.3 % (2.0-8.0); NEUTROPHILS % 56.8 % (40.0-76.0); PLATELET 291 x1000/uL (130-400); RED BLOOD CELL COUNT 3.33 mill/uL (4.2-5.4); RED CELL DISTRIBUTION WIDTH 12.7 % (11.6-14.6)
[2019-02-19 07:25] LABS: FERRITIN 173 ng/mL (10-291)
[2019-02-19 07:37] LABS: VITAMIN B12 SERUM 1301 pg/mL (211-911)
[2019-02-19 07:39] LABS: FOLIC ACID (FOLATE) SERUM > 20.00 ng/mL (>5.38)
[2019-02-19 08:00] VITALS: BP 128/68
[2019-02-19] MEDS: DOCUSATE SODIUM 100MG CAPSULE PO SCH ×2 (09:00→17:39)
[2019-02-19] MEDS: POLYETHYLENE GLYCOL 3350 (17GM) 1 DOSE PACK PO SCH (09:00)
[2019-02-19] MEDS: LOSARTAN POTASSIUM 50 MG TABLET PO SCH (09:00)
[2019-02-19] MEDS: FAMOTIDINE 20MG TABLET PO SCH (09:01)
[2019-02-19] MEDS: ENOXAPARIN 40MG/0.4ML SYR SUBCUT SCH (09:01)
[2019-02-19] MEDS ORDERED: POTASSIUM CHLORIDE 20MEQ TABLET SR PO NR (11:30)
[2019-02-19] MEDS ORDERED: MAGNESIUM 1 G PREMIX 100 ML IV NR (15:30)
[2019-02-19] MEDS: MAGNESIUM GLUCONATE 500MG TABLET PO SCH (17:39)
[2019-02-19 20:21] VITALS: BP 139/67
[2019-02-19] MEDS: LATANOPROST 0.005% OPHTH DROPS 2.5ML BOTHEYE SCH (22:21)
[2019-02-20] MEDS: BLOOD SUGAR DIAGNOSTIC STRIP TEST SCH ×4 (06:36→21:17)
[2019-02-20 06:51] LABS: BASOPHILS % 0.6 % (0.0-2.0); HEMATOCRIT. 29.3 % (36.0-48.0); HEMOGLOBIN. 10.4 g/dL (12.0-16.0); MEAN CORPUSCULAR VOLUME 90.1 fL (81.0-99.0); MEAN PLATELET VOLUME 6.1 fl (7.4-10.4); MONOCYTES % 10.3 % (2.0-8.0); NEUTROPHILS % 50.1 % (40.0-76.0); PLATELET 263 x1000/uL (130-400); RED BLOOD CELL COUNT 3.25 mill/uL (4.2-5.4); RED CELL DISTRIBUTION WIDTH 12.9 % (11.6-14.6)
[2019-02-20 07:08] LABS: CHLORIDE 109 mEq/L (98-107)
[2019-02-20 07:25] LABS: AMYLASE 92 IU/L (25-115)
[2019-02-20] MEDS: INSULIN LISPRO 100 UNITS/ML SUBCUT SCH ×2 (07:57→12:36)
[2019-02-20 08:00] VITALS: BP 128/65
[2019-02-20] MEDS: POLYETHYLENE GLYCOL 3350 (17GM) 1 DOSE PACK PO SCH (08:21)
[2019-02-20] MEDS: FAMOTIDINE 20MG TABLET PO SCH (08:21)
[2019-02-20] MEDS: ENOXAPARIN 40MG/0.4ML SYR SUBCUT SCH (08:21)
[2019-02-20] MEDS: DOCUSATE SODIUM 100MG CAPSULE PO SCH ×2 (08:21→17:08)
[2019-02-20] MEDS: MAGNESIUM GLUCONATE 500MG TABLET PO SCH (08:21)
[2019-02-20] MEDS: LOSARTAN POTASSIUM 50 MG TABLET PO SCH (08:21)
[2019-02-20] MEDS: METFORMIN HCL 500MG TABLET PO SCH (17:08)
[2019-02-20 20:00] VITALS: BP 134/67
[2019-02-20] MEDS: LATANOPROST 0.005% OPHTH DROPS 2.5ML BOTHEYE SCH (21:16)
[2019-02-21] MEDS: BLOOD SUGAR DIAGNOSTIC STRIP TEST SCH ×4 (06:12→20:49)
[2019-02-21 06:45] LABS: CHLORIDE 109 mEq/L (98-107)
[2019-02-21] MEDS: GLIPIZIDE 5MG TABLET PO SCH (06:52)
[2019-02-21 07:05] LABS: BASOPHILS % 0.6 % (0.0-2.0); EOSINOPHILS % 2.1 % (0.0-5.0); HEMOGLOBIN. 10.8 g/dL (12.0-16.0); LYMPHOCYTES % 38.6 % (20.0-50.0); MEAN CORPUSCULAR HEMOGLOBIN 32.6 pg (28.0-32.0); MEAN PLATELET VOLUME 6.2 fl (7.4-10.4); MONOCYTES % 10.2 % (2.0-8.0); NEUTROPHILS % 48.5 % (40.0-76.0); PLATELET 257 x1000/uL (130-400); RED CELL DISTRIBUTION WIDTH 12.6 % (11.6-14.6)
[2019-02-21 07:55] VITALS: BP 145/61
[2019-02-21] MEDS: ENOXAPARIN 40MG/0.4ML SYR SUBCUT SCH (08:16)
[2019-02-21] MEDS: LOSARTAN POTASSIUM 50 MG TABLET PO SCH (08:16)
[2019-02-21] MEDS: POLYETHYLENE GLYCOL 3350 (17GM) 1 DOSE PACK PO SCH (08:16)
[2019-02-21] MEDS: DOCUSATE SODIUM 100MG CAPSULE PO SCH ×2 (08:17→16:46)
[2019-02-21] MEDS: MAGNESIUM GLUCONATE 500MG TABLET PO SCH (08:17)
[2019-02-21] MEDS: METFORMIN HCL 500MG TABLET PO SCH ×2 (08:17→16:46)
[2019-02-21] MEDS: FAMOTIDINE 20MG TABLET PO SCH (08:17)
[2019-02-21 20:00] VITALS: BP 145/60
[2019-02-21] MEDS: LATANOPROST 0.005% OPHTH DROPS 2.5ML BOTHEYE SCH (20:49)
[2019-02-22] MEDS: GLIPIZIDE 5MG TABLET PO SCH (06:34)
[2019-02-22] MEDS: BLOOD SUGAR DIAGNOSTIC STRIP TEST SCH ×4 (06:35→20:04)
[2019-02-22 07:24] LABS: BASOPHILS % 0.9 % (0.0-2.0); EOSINOPHILS % 1.9 % (0.0-5.0); HEMATOCRIT. 31.1 % (36.0-48.0); HEMOGLOBIN. 11.2 g/dL (12.0-16.0); LYMPHOCYTES % 38.7 % (20.0-50.0); MEAN CORPUSCULAR HEMOGLOBIN 32.5 pg (28.0-32.0); MEAN CORPUSCULAR VOLUME 90.2 fL (81.0-99.0); MONOCYTES % 8.3 % (2.0-8.0); NEUTROPHILS % 50.2 % (40.0-76.0); PLATELET 259 x1000/uL (130-400); RED BLOOD CELL COUNT 3.45 mill/uL (4.2-5.4); RED CELL DISTRIBUTION WIDTH 12.8 % (11.6-14.6)
[2019-02-22 07:25] LABS: CHLORIDE 109 mEq/L (98-107)
[2019-02-22 08:12] VITALS: BP 148/68
[2019-02-22] MEDS: LOSARTAN POTASSIUM 50 MG TABLET PO SCH (08:21)
[2019-02-22] MEDS: METFORMIN HCL 500MG TABLET PO SCH ×2 (08:21→16:26)
[2019-02-22] MEDS: DOCUSATE SODIUM 100MG CAPSULE PO SCH ×2 (08:21→16:27)
[2019-02-22] MEDS: ENOXAPARIN 40MG/0.4ML SYR SUBCUT SCH (08:21)
[2019-02-22] MEDS: MAGNESIUM GLUCONATE 500MG TABLET PO SCH (08:21)
[2019-02-22] MEDS: FAMOTIDINE 20MG TABLET PO SCH (08:21)
[2019-02-22] MEDS: POLYETHYLENE GLYCOL 3350 (17GM) 1 DOSE PACK PO SCH (09:00)
[2019-02-22 20:00] VITALS: BP 144/66
[2019-02-22] MEDS: LATANOPROST 0.005% OPHTH DROPS 2.5ML BOTHEYE SCH (20:04)
[2019-02-23 04:17] LABS: 25-HYDROXY VITAMIN D3 52 ng/mL (.)
[2019-02-23] MEDS: GLIPIZIDE 5MG TABLET PO SCH (06:08)
[2019-02-23] MEDS: BLOOD SUGAR DIAGNOSTIC STRIP TEST SCH ×4 (06:11→21:01)
[2019-02-23 06:50] LABS: BASOPHILS % 0.5 % (0.0-2.0); EOSINOPHILS % 2.2 % (0.0-5.0); HEMATOCRIT. 29.7 % (36.0-48.0); HEMOGLOBIN. 10.6 g/dL (12.0-16.0); LYMPHOCYTES % 34.6 % (20.0-50.0); MEAN CORPUSCULAR VOLUME 89.8 fL (81.0-99.0); MEAN PLATELET VOLUME 6.5 fl (7.4-10.4); MONOCYTES % 9.2 % (2.0-8.0); NEUTROPHILS % 53.5 % (40.0-76.0); PLATELET 234 x1000/uL (130-400); RED BLOOD CELL COUNT 3.31 mill/uL (4.2-5.4); RED CELL DISTRIBUTION WIDTH 12.5 % (11.6-14.6)
[2019-02-23 07:46] LABS: CHLORIDE 110 mEq/L (98-107)
[2019-02-23 08:00] VITALS: BP 146/71
[2019-02-23] MEDS: ENOXAPARIN 40MG/0.4ML SYR SUBCUT SCH (08:52)
[2019-02-23] MEDS: FAMOTIDINE 20MG TABLET PO SCH (08:52)
[2019-02-23] MEDS: POLYETHYLENE GLYCOL 3350 (17GM) 1 DOSE PACK PO SCH (08:52)
[2019-02-23] MEDS: LOSARTAN POTASSIUM 50 MG TABLET PO SCH (08:53)
[2019-02-23] MEDS: DOCUSATE SODIUM 100MG CAPSULE PO SCH ×2 (08:53→16:53)
[2019-02-23] MEDS: MAGNESIUM GLUCONATE 500MG TABLET PO SCH (08:53)
[2019-02-23] MEDS: METFORMIN HCL 500MG TABLET PO SCH ×2 (08:53→16:53)
[2019-02-23 20:00] VITALS: BP 109/69
[2019-02-23] MEDS: LATANOPROST 0.005% OPHTH DROPS 2.5ML BOTHEYE SCH (20:56)
[2019-02-24] MEDS: GLIPIZIDE 5MG TABLET PO SCH (06:26)
[2019-02-24] MEDS: BLOOD SUGAR DIAGNOSTIC STRIP TEST SCH ×4 (06:26→21:14)
[2019-02-24 06:30] LABS: BASOPHILS % 0.4 % (0.0-2.0); EOSINOPHILS % 1.8 % (0.0-5.0); HEMATOCRIT. 28.7 % (36.0-48.0); HEMOGLOBIN. 10.3 g/dL (12.0-16.0); LYMPHOCYTES % 31.6 % (20.0-50.0); MEAN CORPUSCULAR HEMOGLOBIN 32.3 pg (28.0-32.0); MEAN CORPUSCULAR VOLUME 90.3 fL (81.0-99.0); MEAN PLATELET VOLUME 6.4 fl (7.4-10.4); MONOCYTES % 9.5 % (2.0-8.0); NEUTROPHILS % 56.7 % (40.0-76.0); PLATELET 233 x1000/uL (130-400); RED BLOOD CELL COUNT 3.18 mill/uL (4.2-5.4); RED CELL DISTRIBUTION WIDTH 12.6 % (11.6-14.6)
[2019-02-24 07:27] LABS: CHLORIDE 108 mEq/L (98-107)
[2019-02-24 07:44] VITALS: BP 151/64
[2019-02-24] MEDS: METFORMIN HCL 500MG TABLET PO SCH ×2 (08:25→16:04)
[2019-02-24] MEDS: FAMOTIDINE 20MG TABLET PO SCH (08:26)
[2019-02-24] MEDS: LOSARTAN POTASSIUM 50 MG TABLET PO SCH (08:26)
[2019-02-24] MEDS: DOCUSATE SODIUM 100MG CAPSULE PO SCH ×2 (08:26→16:04)
[2019-02-24] MEDS: MAGNESIUM GLUCONATE 500MG TABLET PO SCH (08:26)
[2019-02-24] MEDS: ENOXAPARIN 40MG/0.4ML SYR SUBCUT SCH (08:26)
[2019-02-24] MEDS: POLYETHYLENE GLYCOL 3350 (17GM) 1 DOSE PACK PO SCH (08:42)
[2019-02-24 20:00] VITALS: BP 149/69
[2019-02-24] MEDS: LATANOPROST 0.005% OPHTH DROPS 2.5ML BOTHEYE SCH (21:15)
[2019-02-25] MEDS: BLOOD SUGAR DIAGNOSTIC STRIP TEST SCH ×4 (06:08→21:32)
[2019-02-25] MEDS: GLIPIZIDE 5MG TABLET PO SCH (06:11)
[2019-02-25 06:55] LABS: CHLORIDE 109 mEq/L (98-107)
[2019-02-25 07:48] VITALS: BP_SYST 114; BP_SYST 154; BP_DIAS 70; BP_DIAS 76
[2019-02-25 07:56] LABS: BASOPHILS % 0.5 % (0.0-2.0); EOSINOPHILS % 2.1 % (0.0-5.0); HEMATOCRIT. 30.1 % (36.0-48.0); HEMOGLOBIN. 10.7 g/dL (12.0-16.0); LYMPHOCYTES % 30.7 % (20.0-50.0); MEAN CORPUSCULAR HEMOGLOBIN 32.2 pg (28.0-32.0); MEAN CORPUSCULAR VOLUME 90.9 fL (81.0-99.0); MEAN PLATELET VOLUME 6.2 fl (7.4-10.4); NEUTROPHILS % 58.7 % (40.0-76.0); PLATELET 226 x1000/uL (130-400); RED BLOOD CELL COUNT 3.31 mill/uL (4.2-5.4); RED CELL DISTRIBUTION WIDTH 13.1 % (11.6-14.6)
[2019-02-25] MEDS: POLYETHYLENE GLYCOL 3350 (17GM) 1 DOSE PACK PO SCH (09:00)
[2019-02-25] MEDS: ENOXAPARIN 30MG/0.3ML SYR SUBCUT SCH (09:50)
[2019-02-25] MEDS: FAMOTIDINE 20MG TABLET PO SCH (09:51)
[2019-02-25] MEDS: DOCUSATE SODIUM 100MG CAPSULE PO SCH ×2 (09:51→16:19)
[2019-02-25] MEDS: MAGNESIUM GLUCONATE 500MG TABLET PO SCH (09:51)
[2019-02-25] MEDS: METFORMIN HCL 500MG TABLET PO SCH ×2 (09:51→16:19)
[2019-02-25] MEDS: LOSARTAN POTASSIUM 50 MG TABLET PO SCH (09:51)
[2019-02-25 20:00] VITALS: BP 153/69
[2019-02-25] MEDS: LATANOPROST 0.005% OPHTH DROPS 2.5ML BOTHEYE SCH (21:32)
[2019-02-26] MEDS: GLIPIZIDE 5MG TABLET PO SCH (06:11)
[2019-02-26] MEDS: BLOOD SUGAR DIAGNOSTIC STRIP TEST SCH (06:23)
[2019-02-26 07:41] VITALS: BP 155/63
[2019-02-26 07:42] LABS: BASOPHILS % 0.5 % (0.0-2.0); EOSINOPHILS % 2.2 % (0.0-5.0); HEMOGLOBIN. 10.8 g/dL (12.0-16.0); LYMPHOCYTES % 34.3 % (20.0-50.0); MEAN CORPUSCULAR HEMOGLOBIN 32.4 pg (28.0-32.0); MEAN CORPUSCULAR VOLUME 89.9 fL (81.0-99.0); MEAN PLATELET VOLUME 6.4 fl (7.4-10.4); PLATELET 237 x1000/uL (130-400); RED BLOOD CELL COUNT 3.34 mill/uL (4.2-5.4); RED CELL DISTRIBUTION WIDTH 12.9 % (11.6-14.6)
[2019-02-26 08:15] LABS: CHLORIDE 110 mEq/L (98-107)
[2019-02-26] MEDS: MAGNESIUM GLUCONATE 500MG TABLET PO SCH (08:26)
[2019-02-26] MEDS: LOSARTAN POTASSIUM 50 MG TABLET PO SCH (08:26)
[2019-02-26] MEDS: POLYETHYLENE GLYCOL 3350 (17GM) 1 DOSE PACK PO SCH (08:26)
[2019-02-26] MEDS: METFORMIN HCL 500MG TABLET PO SCH (08:26)
[2019-02-26] MEDS: DOCUSATE SODIUM 100MG CAPSULE PO SCH (08:26)
[2019-02-26] MEDS: ENOXAPARIN 30MG/0.3ML SYR SUBCUT SCH (08:26)
[2019-02-26] MEDS: FAMOTIDINE 20MG TABLET PO SCH (08:26)
[2019-02-26 09:14] VITALS: BP 140/72
== END 2019-02-26 11:00 | disposition home health service (06) | DRG 444 ==
PROVIDERS: ADMIT Physical Medicine & Rehabilitation Spinal Cord Injury Medicine; ATTEND Family Medicine Adult Medicine
DX: K80.70 Calculus of gallbladder and bile duct without cholecystitis without obstruction (principal); G92 Toxic encephalopathy; K85.91 Acute pancreatitis with uninfected necrosis, unspecified; N18.9 Chronic kidney disease, unspecified; E11.22 Type 2 diabetes mellitus with diabetic chronic kidney disease; R13.10 Dysphagia, unspecified; E78.5 Hyperlipidemia, unspecified; I48.0 Paroxysmal atrial fibrillation; K21.9 Gastro-esophageal reflux disease without esophagitis; D64.9 Anemia, unspecified; I12.9 Hypertensive chronic kidney disease with stage 1 through stage 4 chronic kidney disease, or unspecified chronic kidney disease; R26.9 Unspecified abnormalities of gait and mobility; K22.70 Barrett's esophagus without dysplasia; E87.6 Hypokalemia; E83.42 Hypomagnesemia; H40.9 Unspecified glaucoma; E11.39 Type 2 diabetes mellitus with other diabetic ophthalmic complication; H42 Glaucoma in diseases classified elsewhere; R53.81 Other malaise; K29.50 Unspecified chronic gastritis without bleeding; F03.90 Unspecified dementia, unspecified severity, without behavioral disturbance, psychotic disturbance, mood disturbance, and anxiety; M81.0 Age-related osteoporosis without current pathological fracture; G47.00 Insomnia, unspecified; E78.00 Pure hypercholesterolemia, unspecified; H91.93 Unspecified hearing loss, bilateral; D50.9 Iron deficiency anemia, unspecified; Z83.3 Family history of diabetes mellitus; Z85.038 Personal history of other malignant neoplasm of large intestine; Z87.440 Personal history of urinary (tract) infections; Z85.3 Personal history of malignant neoplasm of breast; Z79.899 Other long term (current) drug therapy; Z79.82 Long term (current) use of aspirin; Z79.84 Long term (current) use of oral hypoglycemic drugs; Z82.49 Family history of ischemic heart disease and other diseases of the circulatory system; Z90.49 Acquired absence of other specified parts of digestive tract; Z90.12 Acquired absence of left breast and nipple; Z80.8 Family history of malignant neoplasm of other organs or systems; Z83.49 Family history of other endocrine, nutritional and metabolic diseases
CPT/HCPCS: 36415; 80048; 80061; 80076; 82150; 82248; 82306; 82607; 82728; 82746; 82962; 83036; 83540; 83550; 83735; 84100; 84134; 84443; 92523; 92610; 93005; 93970; 97110; 97112; 97116; 97162; 97166; 97530; 97535; A6261; C1893; J1650; J1815; J3475; J7050; Q9967